=== PATIENT | male | born 1955 | race Caucasian/White ===

== ENCOUNTER 2022-01-07 12:41 | Emergency (ER) | payer MEDICARE, SELFPAY ==
[2022-01-07 12:43] VITALS: BP 159/81; PULSE 97; RESP 16; TEMP 36.9; O2SAT 96; BMI 31.4
--- NOTE | 2022-01-07 12:52 | ED.VIS.LOWEX ---
HPI History of Present Illness Chief Complaint: Lower Extremity Injury Detail of Chief Complaint: Swelling of right leg Informant: patient Narrative Narrative: Patient presents to the emergency department swelling of the right leg for about a week. Patient states that 3 weeks ago he was jogging and he felt a discomfort or injury to the right knee. 1 week ago he did a lot of walking and subsequently developed swelling to the leg. Today he was seen in urgent care and had x-rays of the knee and also had a venous Doppler of the right lower extremity that apparently showed DVT and was referred to the emergency department. Patient denies any chest pain or shortness of breath. Denies recent travel or surgery. Prior similar symptoms: No PFSH PFSH Medical History (Updated 01/07/22 @ 12:[address] Cecilio Romano, DO) Hernia History of stomach ulcers Home Medications apixaban 5 mg tablet (Eliquis) 5 mg PO BID #74 tabs 01/07/22 [Rx Last Taken Unknown] Allergy/AdvReac Type Severity Reaction Status Date / Time No Known Allergies Allergy Unverified 01/07/22 12:42 Social History (Updated 04/04/18 @ 11:40 by Denis PACHECO, TARA) Smoking Status: Never smoker alcohol intake: never ROS ROS ED Review of Systems ROS Unobtainable: other Constitutional Constitutional ED: Reports lethargy; Denies chills, fever(s), sweats or weight loss Eyes Eyes: Denies blurry vision, change in vision or diplopia ENT ENT ED: Denies rhinorrhea or sore throat Cardiovascular Cardiovascular: Denies chest pain, orthopnea or racing heartbeat Respiratory/Chest Respiratory/Chest: Reports dyspnea and dyspnea on exertion; Denies cough, orthopnea or sputum Gastrointestinal Gastrointestinal: Denies abdominal pain, diarrhea, nausea or vomiting Genitourinary Genitourinary ED: Denies dysuria, hematuria or urinary frequency Musculoskeletal Musculoskeletal: Reports other Details: Right leg swelling ; Denies arthralgias, back pain, myalgias or neck pain Integumentary Denies abscess, Abrasions or rash Neurologic Neurologic: Denies headache(s) or weakness Psychiatric Psychiatric: Denies anxiety, depression or suicidal thoughts Endocrine Endocrinology: Denies polydipsia, polyphagia or polyuria Hematologic/Lymphatic Hematologic/Lymphatic: Denies easy bleeding, easy bruising or lymphadenopathy Allergic/Immunologic Allergic/Immunologic ED: Denies mouth swelling, tongue swelling or urticaria EXAM Physical Exam Const Vital Signs: 01/07/22 12:43 Temperature 98.4 F Temperature Source Temporal Pulse Rate 97 Respiratory Rate 16 Blood Pressure 159/81 H Blood Pressure Mean 107 Pulse Ox 96 Oxygen Delivery Method Room Air Positive well nourished and well developed General Appearance ED: well developed and NAD HEENT Reports TM's clear and moist mucous membranes normocephalic and atraumatic; Negative for trauma or tenderness Tympanic Membrane ED: Yes TM's clear Eyes PERRL and EOMs intact bilaterally General Eye ED: Negative for pale conjunctiva or scleral icterus Neck no lymphadenopathy, supple and no JVD General: Negative for tenderness Chest Wall inspection of chest normal and palpation of chest normal Chest: Negative for tenderness Resp normal respiratory effort and clear to auscultation bilaterally Effort and Inspection: Negative for respiratory distress or pain with movement Auscultation: Negative for rhonchi, wheezes or diminished lung sounds Cardio regular rate, regular rhythm, S1 normal heart sound, S2 normal heart sound and no murmurs Peripheral Pulses: pulses 2+ throughout GI normal to inspection, nondistended, normoactive bowel sounds, soft to palpation, non-tender, non-distended and no masses Back/Spine no CVA tenderness and no thoracic nor lumbar tenderness Extremity Extremity Narrative: Patient does have edema of the right lower extremity from below the knee down to the foot. There are some faint increased erythema to the leg compared to the left side. Patient has normal dorsal pedal and posterior tibial pulses as well as popliteal and femoral pulses. No evidence for phlegmasia cerulea dolens. General Extremety ED: Negative for edema General Extremity: Negative for edema Neuro oriented x3, CN's II-XII intact bilaterally, no sensory deficits noted and gait normal Sensorium / Orientation: awake, alert, oriented to person, oriented to place and oriented to time Motor Exam: strength 5/5 throughout and strength abnormal Psych mental status grossly normal Skin no rashes or lesions noted and no wounds MDM MDM MDM Narrative Medical decision making narrative: Patient has a DVT based on the report that I received via fax in the proximal deep vein of the femoral vein. Patient also with acute proximal deep vein thrombosis in the profundofemoral vein as well as acute proximal deep vein thrombosis in the femoral vein throughout. Patient also with deep vein thrombosis in the popliteal vein. Patient will be started on Eliquis and given first dose in the emergency department. Patient advised to return if chest pain, shortness of breath, increased pain or swelling to the extremity, or condition should worsen anyway. Discharge Plan Triage Chief Complaint: Lower Extremity Injury Other Complaint: Edema ED Provider: Cecilio Romano Dx/Rx/DC Orders Clinical Impression: DVT (deep venous thrombosis) Instructions: ED Deep Vein Thrombosis (DVT) Prescriptions: New Eliquis 5 mg tablet 5 mg PO BID Qty: 74 0RF Rx Instructions: 10 mg twice a day for the first week. Then 5 mg twice a day. Primary Care Provider: Care Physician,No Primary Referrals: Liz Lynch MD [STAFF PHYSICIAN] - 3-5 Days NOT,DEFINED [NON-STAFF] - Disposition Disposition: Home, Self Care
[2022-01-07] MEDS: APIXABAN 5 MG TABLET 10 MG PO (13:13)
[2022-01-07 13:16] VITALS: BP 126/78; PULSE 78; RESP 14; TEMP 37.2; O2SAT 99
== END 2022-01-07 13:18 | disposition home or self-care (01) ==
PROVIDERS: Emergency Provider Emergency Medicine; Visit Provider Emergency Medicine
DX: I82.431 Acute embolism and thrombosis of right popliteal vein (principal); I82.411 Acute embolism and thrombosis of right femoral vein
CPT/HCPCS: 99283

== ENCOUNTER → 2023-07-08 | Outpatient (CLI) | payer MEDICARE, SELFPAY ==
--- OUTSIDE RECORDS SUMMARY | 2023-07-08 14:31 | XMS RPT_ITS | CCD ---
Author Name Unknown Address [address] [place] [address] Organization [facility] Care Team Providers Care [facility] Name Role Phone Unavailable Primary Care Provider Unavailabl e PROVIDER, UNKNOWN Referring Unavailable PROVIDER, UNKNOWN Referring Unavailable Unavailable Primary Care Provider UnavailDAVID Klein Referring Unavailable DAVID TRUJILLO Attending Unavailable Medications Completed/Discontinued Medications Medication Drug Class(es) Dates Sig (Normalized) Sig (Original) acetaminophen 110 mg / aspirin 162 mg / caffeine 32.4 mg / salicylamide 152 mg oral tablet (5 sources) Platelet Aggregation Inhibitor, Nonsteroidal Anti-inflammatory Drug, Central Nervous System Stimulant, Methylxanthine ASA-Acetaminophen- Salicyl-Caff 162 mg-110 mg -152 mg-32.4 mg tab Take 325 mg by mouth as needed. 0 Active Problems Problem Classification Problem Date Documented Da te Episodic/Chronic Other connective tissue disease (1 source) Swelling of lower limb; Translations: [Other specified soft tissue disorders] Episodic Other hereditary and degenerative nervous system conditions (1 source) Essential tremor; Translations: [Essential tremor] Chronic Other nervous system disorders (2 sources) Tremor; Translations: [Tremor, unspecified] 03-12-2023 Episodic Other nervous system disorders (1 source) Tremor, unspecified; Translations: [Tremor] Onset: 03-22-2023 Episodic Other non-traumatic joint disorders (1 source) Pain in right knee; Translations: [Pain in joint, lower leg] Episodic Phlebitis; thrombophlebitis and thromboembolism (1 source) Acute deep vein thrombosis of lower limb; Translations: [Acute embolism and thrombosis of other specified deep vein of right lower extremity] Episodic Results Test Name Value Interpretation Reference Range Facil ity Vital Signs Date Time Vital Sign Value Performing Clinician Faci lity 03-12-2023 14:21-0400 Body height 180.3 cm David Trujillo MD Work Phone: [facility] 03-12-2023 14:21-0400 Body weight 104.15 kg David Trujillo MD Work Phone: [facility] 03-12-2023 14:21-0400 Diastolic blood pressure 96 mm[Hg] David Trujillo MD Work Phone: [facility] 03-12-2023 14:21-0400 Heart rate 77 /min David Trujillo MD Work Phone: [facility] 03-12-2023 14:21-0400 SaO2% (BldA) [Mass fraction] 99 % David Trujillo MD Work Phone: [facility] 03-12-2023 14:21-0400 Systolic blood pressure 168 mm[Hg] David Trujillo MD Work Phone: [facility] 01-07-2022 09:31-0400 Body temperature 99.3 [degF] Deejay Pendlebury DEVELOPMENT EDITOR.CERTIFIED MEDICATION TECHNICIAN Work Phone: [facility] 01-07-2022 09:31-0400 Body weight 102.51 kg Deejay Pendlebury DEVELOPMENT EDITOR.CERTIFIED MEDICATION TECHNICIAN Work Phone: [facility] 01-07-2022 09:31-0400 Diastolic blood pressure 80 mm[Hg] Deejay Pendlebury DEVELOPMENT EDITOR.CERTIFIED MEDICATION TECHNICIAN Work Phone: [facility] 01-07-2022 09:31-0400 Heart rate 98 /min Deejay Pendlebury DEVELOPMENT EDITOR.CERTIFIED MEDICATION TECHNICIAN Work Phone: [facility] 01-07-2022 09:31-0400 Respiratory rate 18 /min Deejay Pendlebury DEVELOPMENT EDITOR.CERTIFIED MEDICATION TECHNICIAN Work Phone: [facility] 01-07-2022 09:31-0400 SaO2% (BldA) [Mass fraction] 96 % Deejay Pendlebury DEVELOPMENT EDITOR.CERTIFIED MEDICATION TECHNICIAN Work Phone: [facility] 01-07-2022 09:31-0400 Systolic blood pressure 132 mm[Hg] Deejay Pendlebury DEVELOPMENT EDITOR.CERTIFIED MEDICATION TECHNICIAN Work Phone: [facility] 12-22-2021 14:07-0400 Diastolic blood pressure 87 mm[Hg] David Trujillo MD Work Phone: [facility] 12-22-2021 14:07-0400 Heart rate 63 /min David Trujillo MD Work Phone: [facility] 12-22-2021 14:07-0400 Systolic blood pressure 155 mm[Hg] David Trujillo MD Work Phone: [facility] 12-22-2021 13:27-0400 Body height 180.3 cm David Trujillo MD Work Phone: [facility] 12-22-2021 13:27-0400 Body weight 104.28 kg David Trujillo MD Work Phone: [facility] 12-22-2021 13:27-0400 SaO2% (BldA) [Mass fraction] 98 % David Trujillo MD Work Phone: [facility] Encounters Encounter Date Encounter Type Care Provider Facility Start: 03-26-2023 Telephone encounter David anand MD Work Phone: [facility] Procedures Date Procedure Procedure Detail Performing Clinician Start: 03-22-2023 Rp loclzj abdi spect w/ct 1 area 1 day imaging David Trujillo MD Work Phone: Start: 12-22-2021 Adult depression screening assessment David Trujillo MD Work Phone: Plan of Treatment Date Care Activity Detail Author Start: 02-26-2023 Influenza [facility] Start: 12-22-2022 Adult depression screening assessment DEPRESSION SCREENING [facility] Start: 06-28-2022 Advance Directive Discussion Advance Directive Discussion [facility] Start: 06-28-2022 Depression Assessment Depression Assessment [facility] Start: 02-26-2022 Influenza vaccination [facility] Start: 06-28-2021 ADVANCE DIRECTIVE DISCUSSION ADVANCE DIRECTIVE DISCUSSION [facility] Start: 10-28-2019 Pneumococcal Vaccine: 65+ (1 - PCV) Pneumococcal Vaccine: 65+ (1 - PCV) [facility] Start: 10-28-2019 PNEUMOCOCCAL: 65+ (1 - PCV) PNEUMOCOCCAL: 65+ (1 - PCV) [facility] Start: 2009 PROSTATE CANCER SCREENING DISCUSSION PROSTATE CANCER SCREENING DISCUSSION [facility] Start: 2004 SHINGRIX VACCINE (1 of 2) SHINGRIX VACCINE (1 of 2) [facility] Start: 10-28-1999 COLOGUARD (FIT-DNA) COLOGUARD (FIT-DNA) [facility] Start: 10-28-1999 Colonoscopy COLONOSCOPY [facility] Start: 10-28-1999 COLORECTAL CANCER SCREENING COLORECTAL CANCER SCREENING [facility] Start: 10-28-[address] COLONOGRAPHY [facility] Start: 10-28-1999 DIABETES SCREEN DIABETES SCREEN [facility] Start: 10-28-1999 Diabetes Screening Diabetes Screening [facility] Start: 10-28-1999 FECAL OCCULT BLOOD FECAL OCCULT BLOOD [facility] Start: 10-28-1999 SIGMOIDOSCOPY SIGMOIDOSCOPY [facility] Start: 1989 Lipid 1996 panel - Serum or Plasma Lipid Screening [facility] Start: 1989 LIPID SCREEN LIPID SCREEN [facility] Start: 1973 Urine microalbumin profile [facility] Start: 1972 HEPATITIS C SCREENING HEPATITIS C SCREENING [facility] Start: 10-28-1959 COVID-19 VACCINE (#1) COVID-19 VACCINE (#1) [facility] Start: 04-29-1955 COVID-19 VACCINE (#1) COVID-19 VACCINE (#1) [facility] Start: 1954 ABDOMINAL AORTIC ANEURYSM SCREENING ABDOMINAL AORTIC ANEURYSM SCREENING [facility] End: 04-10-2024 NM BRAIN TREMOR SPECT/CT NM BRAIN TREMOR SPECT/CT Radiology Routine Tremor 1 Occurrences starting 03/12/2023 until 04/10/2024 [facility] Work Phone: Payers Date Payer Category Payer Medicare AETNA MEDICARE A ETNA MEDICARE O [id number] 2020-Present [phone] [address] [place] [address] [facility] [id number] 2020 Medicare AETNA MEDICARE A ETNA MEDICARE O [id number] 2020-Present [phone] [address] [place] [address] [facility] [id number] 2020 Medicare [id number] Social History Date Type Detail Facility Start: 01-17-2021 End: 03-12-2023 Tobacco smoking status NHIS Ex-smoker [facility] Start: 01-17-2021 End: 03-12-2023 Tobacco use and exposure Smokeless tobacco non-user [facility] Start: 12-22-2021 End: 03-12-2023 Alcohol intake Ex-drinker (finding) [facility] Start: 1955 Sex Assigned At Not on file [facility] Start: 12-12-2021 End: 01-07-2022 Exposure to SARS-CoV-2 (event) Not sure [facility] History of tobacco use Current smoker [facility] Start: 03-12-2023 History of Social function [facility] Start: 03-12-2023 Tobacco use panel [facility] Adult Depression Scr eening Assessment 0 [facility] Clinical Notes 12-22-2021 to 03-30-2023 Telephone Encounter - Reena Sorensen RN - 03/30/2023 12:55 PM EDTTelephone Encounter - David Trujillo MD - 03/30/2023 8:38 AM EDTTelephone Encounter - Sandie Curran - 03/26/2023 1:15 PM EDT Note Date & Type Note Facility 03-30-2023 Miscellaneous Notes Call to patient, message from provider given Patient is unsure at this time if he would like to try sinemet. Will call office once he has decided. Number provided. Please call patient. daTscan result is grade 1 loss which can be normal or very early Parkinson's. Because of this result it is reasonable to try Parkinson's medication and see if the tremor improves. If he is agreeable would start Sinemet. Start low dose and ramp up per directions on prescription. Most common side effect is nausea so take with food to help minimize that. Take doses around meal times, 3 times a day. If he is agreeable I'll send order Patient requesting TEODORO scan results from Wednesday documented in this encounter [facility] 03-22-2023 Note HNO ID: [id number] Author: Darlin Oliveros CNMT Service: Radiology Author Type: Technologist Type: Progress Notes Filed: 03/22/2023 12:44 PM Note Text: RADIOLOGY SERVICE PROGRESS NOTE SERVICE DATE: 03/22/2023 SERVICE TIME: 12:42 PM PATIENT IDENTITY VERIFICATION COMPLETED USING TWO (2) STANDARD IDENTIFIERS: Name and Date of confirmed by patient verbally and Name and Date of confirmed by identification band FALL SCREENING: Has the patient had 2 falls in the last year or 1 fall with injury or currently using an Ambulatory Assistive Device (Walker, Cane, Wheelchair, Crutches, etc.)? No PATIENT GENDER DATA: .male ALLERGIES: Reviewed and unchanged MEDICATIONS REVIEWED: Not applicable PATIENT RELEVANT IMPLANT DATA REVIEWED: Not Applicable CREATININE: No results found for: CREAT , EGFROTH , EGFRAA P.O.C.T. RESULTS: N/A March 22, [address] PERFORMED: No IV SITE: Ambulatory: A peripheral IV was started in the Left antecubital site with a Angio cath: 22 gauge. POST EXAM PIV STATUS: Discontinued PROCEDURE TYPE: NM INJECT: NM BRAIN TREMOR SPECT. 5 mCi I 123 DatScan. 4 drops SSKI administered orally, 15 min prior to injection. ADMINISTRATION TIME: 11:20 PATIENT DISCHARGED TO: Ambulatory patient, left MI department area. A Diagnostic radioactive procedure has taken place, with no further precautions necessary other than routine body substance precautions. More information regarding radiation safety can be found using this link: [email or web address]%20Nuclear%20M edicine%[email or web address] SIGNATURE: Darlin JULIANN Oliveros PATIENT NAME: Pineda Peterson DATE: March 22, 2023 TIME: 12:42 PM PAGER/CONTACT #: [facility] 03-22-2023 History of Presen t illness Narrative RADIOLOGY SERVICE PROGRESS NOTE SERVICE DATE: 03/22/2023 SERVICE TIME: 12:42 PM PATIENT IDENTITY VERIFICATION COMPLETED USING TWO (2) STANDARD IDENTIFIERS: Name and Date of confirmed by patient verbally and Name and Date of confirmed by identification band FALL SCREENING: Has the patient had 2 falls in the last year or 1 fall with injury or currently using an Ambulatory Assistive Device (Walker, Cane, Wheelchair, Crutches, etc.)? No PATIENT GENDER DATA: .male ALLERGIES: Reviewed and unchanged MEDICATIONS REVIEWED: Not applicable PATIENT RELEVANT IMPLANT DATA REVIEWED: Not Applicable CREATININE: No results found for: CREAT , EGFROTH , EGFRAA P.O.C.T. RESULTS: N/A March 22, [address] PERFORMED: No IV SITE: Ambulatory: A peripheral IV was started in the Left antecubital site with a Angio cath: 22 gauge. POST EXAM PIV STATUS: Discontinued PROCEDURE TYPE: NM INJECT: NM BRAIN TREMOR SPECT. 5 mCi I 123 DatScan. 4 drops SSKI administered orally, 15 min prior to injection. ADMINISTRATION TIME: 11:20 PATIENT DISCHARGED TO: Ambulatory patient, left [place] department area. A Diagnostic radioactive procedure has taken place, with no further precautions necessary other than routine body substance precautions. More information regarding radiation safety can be found using this link: [email or web address]-%20Diagnostic% 20Nuclear%20Medicine%20Procedur es.pdf SIGNATURE: JULIANN Delgado PATIENT NAME: Pineda Peterson DATE: March 22, 2023 TIME: 12:42 PM PAGER/CONTACT #: documented in this encounter [facility] 03-12-2023 Note HNO ID: [id number] Author: David Trujillo MD Service: ? Author Type: Physician Type: Progress Notes Filed: 03/12/2023 4:53 PM Note Text: [facility] - FOLLOW UP EVALUATION I had the pleasure of seeing Mr. Peterson for follow-up today. He is a 67 year old right-handed male with a history of tremors since his 30's . He is seen alone. Subjective Previous Plan-12/22/2021 Visit: Can taper off propranolol. Use the same instructions we used to start it but backwards. Can reduce the dose every 5 days rather than the 7 on the bottle. - Interval History: Right hand tremor is more bothersome. No trouble with dexterity. Worse if thinking about something. At rest. Can make an action, put some pressure on it and it briefly will stop. Always had slight tremor. Worse 2-3 years ago. Now cannot move the left hand without the right one moving. Nothing makes it better or worse. Still eats with the right hand. Bad at rest and with posture. Read about HIFU. Would be happy with tremor reduction. Balance is fine. Movement Disorders Medications Schedule - as of the start of the visit: Medications none Other Movement Disorder Prior Therapies Propranolol Questionnaires: In addition, the following areas that may be affected by abnormal involuntary movements were evaluated: Daily activities Difficulties with eatin (none) Difficulties in dressin (none) Difficulties with hygiene activities: 0 (none) Difficulties with handwriting: Yes (slight) Difficulties with doing hobbies and other activities: 0 (none) Difficulties turning in bed: 0 (none) Difficulties getting out of bed, car or chair: 0 (none) Tremors/Gait/Balance Shaking or tremors: Yes (moderate) Walking and balance problems: 0 (none) Number of falls in the Last Month: Gait freezin (none) Autonomic/Pain Lightheadeness on standin (none) Urinary problems: 0 (none) Constipation problems: 0 (none) Pain and other sensations: 0 (none) Speech/Swallowing Speech problems: 0 (none) no Droolin (none) Chewing and swallowing problems: 0 (none) Sleep/Fatigue Sleep problems: 0 (none) Daytime sleepiness: 0 (none) Fatigue: 0 (none) Mood/Behavior Depression: PHQ-9 Score: 0 usually representing no significant (0-4) depression. Anxiety: Finally, the following table shows the patient's overall global physical and mental health using the PROMIS scale: PROMIS-10 Flowsheet Row Office Visit from 03/12/2023 in Neurology Office Visit from 12/22/2021 in Neurology Global Physical Health T Score -- 54.1 Global Mental Health T Score 56 53.3 0-10 Standard Pain Scale 4 4 *PROMIS-10 scoring scale: mean = 50, over 50 is above average, under 50 is below average In addition, the following non-motor symptoms and palliative concerns were evaluated: Sleep/Fatigue: REM sleep behavior disorder: no Restless Legs Syndrome: Leg swelling: Impaired sense of smell: Yes bad for years Cognition: Cognitive impairment: no MoCA Cognitive assessment: Hallucinations and delusions: no Apathy: Impulse control disorder: Palliative Concerns: Caregiver burden: Spiritual concerns: Advanced directives on file: Palliative services: Therapy and Exercise: Last PT Date: Last OT Date: Last ST Date: Exercises Regularly: ALLERGIES No Known Allergies Current Outpatient Medications Medication Sig MULTI-VITAMIN ORAL Take by mouth. propranolol (INDERAL) 10 mg tablet Take 1 tablet by mouth once daily for 7 days, THEN 1 tablet twice daily for 7 days, THEN 1.5 tablets twice daily for 7 days, THEN 2 tablets twice daily. (Patient not taking: Reported on 01/07/2022) krill/om-3/dha/epa/phospho/ast (OMEGA-3 KRILL OIL ORAL) Take 500 mg by mouth once daily. (Patient not taking: Reported on 01/07/2022) ZVF-Iwgujyacuietg-Asozbml-Caff 162 mg-110 mg -152 mg-32.4 mg tab Take 325 mg by mouth as needed. (Patient not taking: Reported on 01/07/2022) No current facility-administered medications for this visit. Objective Vital Signs: BP 168/96 (BP Site: Left Arm, BP Position: Sitting, BP Cuff Size: Large Adult) Pulse 77 Ht 180.3 cm (5' 11 ) Wt 104.1 kg (229 lb 9.6 oz) SpO2 99% BMI 32.02 kg/m? Orthostatic Vitals: None for this encounter Weight: 104.1 kg (229 lb 9.6 oz) Height: 180.3 cm (5' 11 ) No LMP for male patient. Body mass index is 32.02 kg/m?. General Physical Examination: General: Awake, alert, interactive, no acute distress, good nutritional status, normal development, well-kept General Neurological Examination: Neurological Exam Mental Status Awake and alert. Language is fluent with no aphasia. Motor The following abnormal movements were seen: Trace rigidity at right upper extremity. Right hand resting tremor stops with action such as hand personal fitness trainer. Re-emergent right hand tremor with posture. No micrographia. Sentence is tremulous and barely legible. Spirals and lines (more content not included)... [facility] 03-12-2023 History of Presen t illness Narrative [facility] - FOLLOW UP EVALUATION I had the pleasure of seeing Mr. Peterson for follow-up today. He is a 67 year old right-handed male with a history of tremors since his 30's . He is seen alone. Subjective Previous Plan-12/22/2021 Visit: Can taper off propranolol. Use the same instructions we used to start it but backwards. Can reduce the dose every 5 days rather than the 7 on the bottle. - Interval History: Right hand tremor is more bothersome. No trouble with dexterity. Worse if thinking about something. At rest. Can make an action, put some pressure on it and it briefly will stop. Always had slight tremor. Worse 2-3 years ago. Now cannot move the left hand without the right one moving. Nothing makes it better or worse. Still eats with the right hand. Bad at rest and with posture. Read about HIFU. Would be happy with tremor reduction. Balance is fine. Movement Disorders Medications Schedule - as of the start of the visit: Medications none Other Movement Disorder Prior Therapies Propranolol Questionnaires: In addition, the following areas that may be affected by abnormal involuntary movements were evaluated: Daily activities Difficulties with eatin (none) Difficulties in dressin (none) Difficulties with hygiene activities: 0 (none) Difficulties with handwriting: Yes (slight) Difficulties with doing hobbies and other activities: 0 (none) Difficulties turning in bed: 0 (none) Difficulties getting out of bed, car or chair: 0 (none) Tremors/Gait/Balance Shaking or tremors: Yes (moderate) Walking and balance problems: 0 (none) Number of falls in the Last Month: Gait freezin (none) Autonomic/Pain Lightheadeness on standin (none) Urinary problems: 0 (none) Constipation problems: 0 (none) Pain and other sensations: 0 (none) Speech/Swallowing Speech problems: 0 (none) no Droolin (none) Chewing and swallowing problems: 0 (none) Sleep/Fatigue Sleep problems: 0 (none) Daytime sleepiness: 0 (none) Fatigue: 0 (none) Mood/Behavior Depression: PHQ-9 Score: 0 usually representing no significant (0-4) depression. Anxiety: Finally, the following table shows the patient's overall global physical and mental health using the PROMIS scale: PROMIS-10 Flowsheet Row Office Visit from 03/12/2023 in Neurology Office Visit from 12/22/2021 in Neurology Global Physical Health T Score -- 54.1 Global Mental Health T Score 56 53.3 0-10 Standard Pain Scale 4 4 *PROMIS-10 scoring scale: mean = 50, over 50 is above average, under 50 is below average In addition, the following non-motor symptoms and palliative concerns were evaluated: Sleep/Fatigue: REM sleep behavior disorder: no Restless Legs Syndrome: Leg swelling: Impaired sense of smell: Yes bad for years Cognition: Cognitive impairment: no MoCA Cognitive assessment: Hallucinations and delusions: no Apathy: Impulse control disorder: Palliative Concerns: Caregiver burden: Spiritual concerns: Advanced directives on file: Palliative services: Therapy and Exercise: Last PT Date: Last OT Date: Last ST Date: Exercises Regularly: ALLERGIES No Known Allergies Current Outpatient Medications Medication Sig MULTI-VITAMIN ORAL Take by mouth. propranolol (INDERAL) 10 mg tablet Take 1 tablet by mouth once daily for 7 days, THEN 1 tablet twice daily for 7 days, THEN 1.5 tablets twice daily for 7 days, THEN 2 tablets twice daily. (Patient not taking: Reported on 01/07/2022) krill/om-3/dha/epa/phospho/ast (OMEGA-3 KRILL OIL ORAL) Take 500 mg by mouth once daily. (Patient not taking: Reported on 01/07/2022) VAL-Chmjzgpfblxai-Eobjoji-Caff 162 mg-110 mg -152 mg-32.4 mg tab Take 325 mg by mouth as needed. (Patient not taking: Reported on 01/07/2022) No current facility-administered medications for this visit. Objective Vital Signs: BP 168/96 (BP Site: Left Arm, BP Position: Sitting, BP Cuff Size: Large Adult) Pulse 77 Ht 180.3 cm (5' 11 ) Wt 104.1 kg (229 lb 9.6 oz) SpO2 99% BMI 32.02 kg/m Orthostatic Vitals: None for this encounter Weight: 104.1 kg (229 lb 9.6 oz) Height: 180.3 cm (5' 11 ) No LMP for male patient. Body mass index is 32.02 kg/m . General Physical Examination: General: Awake, alert, interactive, no acute distress, good nutritional status, normal development, well-kept General Neurological Examination: Neurological Exam Mental Status Awake and alert. Language is fluent with no aphasia. Motor The following abnormal movements were seen: Trace rigidity at right upper extremity. Right hand resting tremor stops with action such as hand personal fitness trainer. Re-emergent right hand tremor with posture. No micrographia. Sentence is tremulous and barely legible. Spirals and lines are very tremulous with the right hand, very mildly tremulous with left.. Gait Casual gait: Normal stance. Normal stride length. Normal gait. Reduced right arm swing. Normal left arm swing. Able to rise from chair without using arms. Movement Disorders Scales Performed: MDS-UPDRS Motor subscale condition of exam Medication Off/On/Naiive Drug Naiive Time of UPDRS Time of Last Medication Last Medication Taken DBS Right DBS Left MDS-UPDRS Motor subscale scores Speech 0-Normal. No speech problems. Facial Expression 0-Normal. Normal facial expression. Rigidity Neck 0-Normal. No rigidity. Rigidity Right Upper Extremity 1-Slight. Rigidity only detected with activation maneuver. Rigidity Left Upper Extremity 0-Normal. No rigidity. Rigidity Right Lower Extremity 0-Normal. No rigidity. Rigidity Left Lower Extremity 0-Normal. No rigidity. Finger Taps Right 0-Normal. No problems. ` Finger Taps Left 0-Normal. No problems. Hand Movements Right 0-Normal. No problem. Hand Movements Left 0-Normal. No problem. Arm Movements Right 0-Normal. No problems. Arm Movements Left 0-Normal. No problems. Toe Taps Right 0-Normal. No problem. Toe Taps Left 0-Normal. No problem. Leg Agility Right 0-Normal. No problems. Leg Agility Left 0-Normal. No problems. Arise From Chair 0-Normal. No problems. Able to arise quickly without hesitation. Gait 1-Slight. Independent walking with minor gait impairment. (reduced right arm swing, re-emergent R hand tremor) Gait Freezing 0-Normal. No freezing. Posture Stability 0-Normal. No problems: recovers with one or two steps. (deferred) Posture 0-Normal. No problems. Body Bradykinesia 0-Normal. No problems. Postural Tremor Hand Right 3-Moderate. Tremor is at least 3 but less than 10 cm in amplitude. Postural Tremor Hand Left 0-Normal. No tremor. Kinetic Tremor Right 1-Slight. Tremor is present but less than 1cm in amplitude. Kinetic Tremor Left 1-Slight. Tremor is present but less than 1cm in amplitude. Rest Tremor Amplitude Right Upper Extremity 3-Moderate. 3 - 10 cm in maximal amplitude. Rest Tremor Amplitude Left Upper Extremity 0-Normal. No tremor. Rest Tremor Amplitude Right Lower Extremity 0-Normal. No tremor. Rest Tremor Amplitude Left Lower Extremity 0-Normal. No tremor. Rest Tremor Amplitude Lip/Jaw 0-Normal. No tremor. Rest Tremor Constancy 4-Severe. Tremor at rest is present > 75% of the entire examination period. MDS-UPDRS Motor subscale totals Left Total 1 Right Total 8 Midline Total 1 Tremor Total / 10 12 PIGD Total / 3 1 Overall Total 14 % Change Compared to Last Filed Total Assessment and Plan: Assessment Mr. Peterson is a right-handed 67 year old year old male with tremor. Noted right hand tremor initially only when writing in his 30's. Then a few years ago developed larger tremor in the right hand. Now with right hand moderate amplitude resting and postural tremors, minimal bilateral upper extremity action tremors. There is trace rigidity in the right upper extremity and reduced right arm swing. No obvious bradykinesia on the right but exam is limited by the tremor. Tremor is not irregular or task specific. No micrographia or RBD. He does admit to hyposmia. He didn't respond to propranolol. He is interested in treatment, possibly surgical options. Need to solidify the diagnosis. Suspect initially ET vs primary writing tremor that has developed into PD. Will obtain [facility]scan. The following are the current problems noted and addressed during this visit: Tremor (primary encounter diagnosis) Plan 03/12/2023 Visit: [facility] - Updated Movement Disorders Medication Schedule: Medications Level of service : 51883 (40-54 min). Time spent 46 min on the day of service, which included preparing to see the patient, [id number] patient care, completing clinical documentation, performing a medically appropriate examination, counseling and educating the patient/family/caregiver, and ordering medications, tests, or procedures. Thank you for allowing me to be part of the clinical care of this patient! I look forward to continued participation in the patient s care with you. Please do not hesitate to call with any questions. Sincerely, David Trujillo MD documented in this encounter [facility] 01-07-2022 History of Presen t illness Narrative Subjective HPI Nontoxic appearing male presents urgent care chief complaint right calf swelling and pain. Duration of symptoms 8 days. Patient states he was running 8 days ago when he felt some pain underneath his right knee. States noticed some swelling of his knee. States pain was improving some and then he had do a lot of walking. States after this he developed some swelling in his right calf. Presents today for evaluation. States pain has improved swelling has improved slightly however he is concerned about DVTs due to family history of DVTs. Has been using aspirin this has helped. Denies any numbness no tingling. Denies any chest pain shortness of breath pleuritic pain hemoptysis nausea vomiting abdominal pain or change in bowel or bladder habits. Denies history of DVT PEs personally. No recent long travel or surgery. Denies history of cancer. Past medical history prescription medication use allergies reviewed. .Patient presents with: Calf Pain: right calf swollen x 1 week, does run and walk PAST MEDICAL HISTORY Diagnosis Date Occasional tremors with hands when reaching, he can stop them if he sits on hands Onychomycosis Plantar fasciitis Right Foot Pneumonia due to COVID-19 virus PTTD (posterior tibial tendon dysfunction) PAST SURGICAL HISTORY Procedure Laterality Date HERNIA REPAIR HX umbilical and bilateral inguinal surgery repairs PAST SURGICAL HISTORY OF PAST SURGICAL HISTORY OF tonsilectomy ALLERGIES Patient has no known allergies. MEDICATIONS MULTI-VITAMIN ORAL Take by mouth. propranolol (INDERAL) 10 mg tablet Take 1 tablet by mouth once daily for 7 days, THEN 1 tablet twice daily for 7 days, THEN 1.5 tablets twice daily for 7 days, THEN 2 tablets twice daily. krill/om-3/dha/epa/phospho/ast (OMEGA-3 KRILL OIL ORAL) Take 500 mg by mouth once daily. PCU-Jyrlijrxjdgwb-Ckqfpms-Caff 162 mg-110 mg -152 mg-32.4 mg tab Take 325 mg by mouth as needed. FAMILY HISTORY Problem Relation Age of Onset Thyroid Mother Diabetes Half-brother Heart Half-brother Bypass surgical History Mental illness Maternal Grandmother Hypertension No Family History Hyperlipidemia No Family History Coronary Artery Disease No Family History Blood Disease No Family History Blood Clots No Family History DVT No Family History Stroke No Family History Factor 5 Leiden No Family History Systemic Lupus Erythematosus No Family History Multiple Sclerosis No Family History Schizophrenia No Family History Bipolar disorder No Family History Alzheimer's Disease No Family History Dementia No Family History Parkinson s Disease No Family History Aneurysm No Family History COPD No Family History Kidney Disease No Family History Social History Tobacco Use Smoking status: Former Smoker Smokeless tobacco: Never Used Substance Use Topics Alcohol use: Not Currently Drug use: Never BP 132/80 Pulse 98 Temp 37.4 C (99.3 F) Resp 18 Wt 102.5 kg (226 lb) SpO2 96% BMI 31.52 kg/m Review of Systems Constitutional: Negative for chills, fever and malaise/fatigue. HENT: Negative for congestion, ear discharge, ear pain, sinus pain and sore throat. Eyes: Negative for blurred vision, pain, discharge and redness. Respiratory: Negative for cough, hemoptysis, sputum production, shortness of breath, wheezing and stridor. Cardiovascular: Negative for chest pain. Gastrointestinal: Negative for abdominal pain, diarrhea, nausea and vomiting. Musculoskeletal: Positive for joint pain. Negative for myalgias. Skin: Negative for itching and rash. Neurological: Negative for dizziness and headaches. Objective Physical Exam Constitutional: General: He is not in acute distress. Appearance: He is not diaphoretic. HENT: Head: Normocephalic. Mouth/Throat: Mouth: Mucous membranes are moist. Pharynx: Oropharynx is clear. No oropharyngeal exudate or posterior oropharyngeal erythema. Eyes: Conjunctiva/sclera: Conjunctivae normal. Pupils: Pupils are equal, round, and reactive to light. Cardiovascular: Rate and Rhythm: Normal rate and regular rhythm. Heart sounds: Normal heart sounds. Pulmonary: Effort: Pulmonary effort is normal. No tachypnea, accessory muscle usage or respiratory distress. Breath sounds: Normal breath sounds. No stridor. No wheezing, rhonchi or rales. Abdominal: Palpations: Abdomen is soft. Tenderness: There is no abdominal tenderness. Musculoskeletal: Cervical back: Normal range of motion and neck supple. No rigidity or tenderness. Right upper leg: No swelling, edema, deformity, lacerations, tenderness or bony tenderness. Right knee: Swelling present. No effusion or erythema. Normal range of motion. Tenderness present. Right lower leg: Swelling present. No deformity, lacerations, tenderness or bony tenderness. Edema present. Right ankle: Swelling present. No ecchymosis. No tenderness. Normal range of motion. Comments: Moderate amount of swelling noted right calf. No erythema. No breaks in skin. Neurovascular intact. No erythema noted right knee. No evidence of bacterial infection. Lymphadenopathy: Cervical: No cervical adenopathy. Skin: General: Skin is warm and dry. Neurological: Mental Status: He is alert and oriented to person, place, and time. IMPRESSION: Findings are suggestive of mild degenerative changes in the right knee. ASSESSMENT/PLAN: 1. Leg swelling - ICD9: 729.81, ICD10: M79.89 (primary - US DVT LOWER RT - US LEG VEIN DVT UNL VAS LAB 2. Acute pain of right knee - ICD9: 719.46, ICD10: M25.561 - XR KNEE GENERAL 4V AP BOTH/PA BOTH/LAT/MERC RIGHT 3. Acute deep vein thrombosis (DVT) of other specified vein of right lower extremity (HCC) - ICD9: 453.40, ICD10: I82.491 RIGHT SIDE - DEEP VEINS Acute proximal deep vein thrombosis in the common femoral vein. Acute proximal deep vein thrombosis in the profunda femoral vein at proximal. Acute proximal deep vein thrombosis in the femoral vein throughout. Acute proximal deep vein thrombosis in the popliteal vein. On reviewing significant amount of DVT was noted. Patient is not established with PCP. I recommended patient be seen in ED for further evaluation care. Patient was contacted and treatment plan was discussed with patient. Patient verbalized understand agrees with plan of care. Will be seen at [facility]. ER passport sent. Deejay Hinson APRN.BREANN documented in this encounter [facility] 12-22-2021 Instructions David Trujillo MD - 12/22/2021 1:58 PM EDT It was a pleasure to see you today. We addressed the following diagnoses: Essential tremor (primary encounter diagnosis) My recommendations are as follows: 12/22/2021 Visit: Can taper off propranolol. Use the same instructions we used to start it but backwards. Can reduce the dose every 5 days rather than the 7 on the bottle. - Movement Disorders Medication Schedule: Return if symptoms worsen or fail to improve. If there are any concerns before your next visit, please call or you can send a message through [facility]. You can also now schedule and select appointments through [facility]. David Trujillo MD documented in this encounter [facility] 12-22-2021 History of Presen t illness Narrative [facility] - FOLLOW UP EVALUATION I had the pleasure of seeing Mr. Peterson for follow up today. He is a 66 year old right-handed male with a history of tremors since his 30's . He is seen alone. Subjective Previous Plan-08/13/2021 Visit: Start propranolol, titrate to 20 mg twice daily. Watch for lightheadedness, low BP. Call with update - Interval History: Good and bad days. Not sure how much propranolol is helping. No side effects. Most days can eat, drink with no problem. Main issue is writing. Some days can write with the right hand. Generally writes with the left hand and right hand shakes when he does it. In addition, the following areas that may be affected by abnormal involuntary movements were evaluated: Daily activities Difficulties with eatin (none) Difficulties in dressin (none) Difficulties with hygiene activities: 0 (none) Difficulties with handwritin (none) Difficulties with doing hobbies and other activities: 0 (none) Difficulties turning in bed: 0 (none) Difficulties getting out of bed, car or chair: 0 (none) Tremors/Gait/Balance Shaking or tremors: Yes (mild) Walking and balance problems: 0 (none) Number of falls in the Last Month: 0 Gait freezin (none) Autonomic/Pain Lightheadeness on standin (none) Urinary problems: Yes (slight) Speech/Swallowing Speech problems: No Droolin (none) Chewing and swallowing problems: 0 (none) Sleep/Fatigue Sleep problems: Yes (slight) Daytime sleepiness: Yes (slight) Fatigue: 0 (none) REM sleep behavior disorder: no Mood/Behavior Depression: PQH-9 = 0 usually representing no significant (0-4) depression. Anxiety: LEFTY-7 = 0 usually representing no significant (0-4) anxiety. Finally, the following table shows the patient's overall global physical and mental health using the PROMIS scale: PROMIS-10 Office Visit from 12/22/2021 in Neurology Global Physical Health T Score 54.1 Global Mental Health T Score 53.3 0-10 Standard Pain Scale 4 *PROMIS-10 scoring scale: mean = 50, over 50 is above average, under 50 is below average Movement Disorders Medications Schedule - as of the start of the visit: propranolol ALLERGIES No Known Allergies Current Outpatient Medications Medication Sig propranolol (INDERAL) 10 mg tablet Take 1 tablet by mouth once daily for 7 days, THEN 1 tablet twice daily for 7 days, THEN 1.5 tablets twice daily for 7 days, THEN 2 tablets twice daily. krill/om-3/dha/epa/phospho/ast (OMEGA-3 KRILL OIL ORAL) Take 500 mg by mouth once daily. MULTI-VITAMIN ORAL Take by mouth. NQR-Scwcfxjtenyct-Wqxtcyq-Caff 162 mg-110 mg -152 mg-32.4 mg tab Take 325 mg by mouth as needed. No current facility-administered medications for this visit. Objective Vital Signs: BP 155/87 (BP Site: Left Arm, BP Position: Sitting, BP Cuff Size: Regular Adult) Pulse 63 Ht 180.3 cm (5' 11 ) Wt 104.3 kg (229 lb 14.4 oz) SpO2 98% BMI 32.06 kg/m General Physical Examination: General: Awake, alert, interactive, no acute distress, good nutritional status, normal development, well-kept General Neurological Examination: Neurological Exam Mental Status Awake and alert. Speech is normal. Language is fluent with no aphasia. Fund of knowledge is appropriate for level of education. Motor Minimal bilateral upper extremity action and postural tremors. No resting tremor. Mild rigidity at upper extremities. No bradykinesia x4 extremities. Assessment and Plan: Assessment Mr. Haverty is a right-handed 66 year old male with tremor. Noting right hand tremor initially only when writing. Symptoms progressed over time and now right hand tremor is with action and at rest, left hand tremor with action is very mild. Right hand tremor at initial onset possibly focal hand dystonia since task specific. Is common for a dystonic tremor to worsen and involve more tasks. Also with left hand tremor with action and posture that is not task specific. No family history of tremors. Unclear if propranolol is helping and he would like to try stopping it. Tremors are manageable and doesn't want to try additional medication at this time. The following are the current problems noted and addressed during this visit: Essential tremor (primary encounter diagnosis) Plan 12/22/2021 Visit: Can taper off propranolol. Use the same instructions we used to start it but backwards. Can reduce the dose every 5 days rather than the 7 on the bottle. - Updated Movement Disorders Medication Schedule: Level of service : 63021 (20-29 min). Time spent 25 min on the day of service, which included preparing to see the patient, ufvo-mg-miln patient care, completing clinical documentation, performing a medically appropriate examination and counseling and educating the patient/family/caregiver. Thank you for allowing me to be part of the clinical care of this patient! I look forward to continued participation in the patient s care with you. Please do not hesitate to call with any questions. Sincerely, David Trujillo MD documented in this encounter [facility] Diagnosis Leg swelling- Primary Swelling of limb Acute pain of right knee Acute deep vein thrombosis (DVT) of other specified vein of right lower extremity (HCC) [facility] Diagnosis Tremor- Primary Abnormal involuntary movements [facility] Diagnosis Tremor Abnormal involuntary movements [facility]narrative)* Outpatient Procedure (Urgent) - Closed Specialty Diagnoses / Procedures Referred By Contac t Referred [facility] Diagnoses Leg swelling Procedures US LEG VEIN DVT UNL VAS LAB DUP-SCAN XTR VEINS UNILATERAL/LIMITED STUDY Deejay Hinson APRN.CERTIFIED MEDICATION TECHNICIAN [address] [place] [address] [facility] [place] [address] [place] [address] Referral ID Status Reason Start Date Expiration Date V isits Requested Visits Authorized [id number] Closed Auto-Generate d Referral 01/07/2022 01/07/2023 1 1 * Diagnostic Procedure Only (Urgent) - Closed Specialty Diagnoses / Procedures Referred By Contac t Referred To Contact XR IMAGING Diagnoses Acute pain of right knee Procedures XR KNEE GENERAL 4V AP BOTH/PA BOTH/LAT/MERC RIGHT RADIOLOGIC EXAM KNEE COMPLETE 4/MORE VIEWS Deejay Hinson APRN.CNP [address] [place] [address] Xr Imaging Referral ID Status Reason Start Date Expiration Date V isits Requested Visits Authorized [id number] Closed Auto-Generate d Referral 01/07/2022 02/06/2023 1 1 [facility] for referral (narrative)* Diagnostic Procedure Only (Routine) - Pending Review Specialty Diagnoses / Procedures Referred By Contac t Referred To Contact MOLECULAR & FUNCTIONAL IMAGING Diagnoses Tremor Procedures NM BRAIN TREMOR SPECT/CT RP LOCLZJ ABDI SPECT W/CT 1 AREA 1 DAY IMAGING David Trujillo MD [facility] [address] [address] Molecular & Functional Imaging [address] [place] [address] Referral ID Status Reason Start Date Expiration Date Visits Requested Visits Authorized [id number] Pending Review Auto-Generat ed Referral 03/12/2023 04/10/2024 1 1 [facility] for referral (narrative)* Diagnostic Procedure Only (Routine) - Closed Specialty Diagnoses / Procedures Referred By Contac t Referred To Contact MOLECULAR & FUNCTIONAL IMAGING Diagnoses Tremor Procedures NM BRAIN TREMOR SPECT/CT RP LOCLZJ ABDI SPECT W/CT 1 AREA 1 DAY IMAGING David Trujillo MD [address] [address] Molecular & Functional Imaging [address] [place], [place] [id number] Referral ID Status Reason Start Date Expiration Date V isits Requested Visits Authorized [id number] Closed Auto-Generate d Referral 03/14/2023 06/27/2023 1 1 [facility] for visit Narrative* Diagnostic Procedure Only (Routine) - Closed Specialty Diagnoses / Procedures Referred By Lacho pierre Referred To Contact MOLECULAR & FUNCTIONAL IMAGING Diagnoses Tremor Procedures NM BRAIN TREMOR SPECT/CT RP LOCLZJ ABDI SPECT W/CT 1 AREA 1 DAY IMAGING David Trujillo MD [address] [address] Molecular & Functional Imaging [address] [place], [place] [id number] Referral ID Status Reason Start Date Expiration Date V isits Requested Visits Authorized [id number] Closed Auto-Generate d Referral 03/14/2023 06/27/2023 1 1 [facility] Summary Purpose Family History No Family History Records FoundNo Family History Records Found Advance Directives No Advanced Directives Records FoundNo Advanced Directives Records Found Additional Source Comments Source Comments (unrecognize d section and content) In the event this informatio n is protected by the Federal Confidentiality of Alcohol and Drug Abuse Patient Records regulations: The Federal rules restrict any use of the information to criminally investigate or prosecute any alcohol or drug abuse patient.[facility] the event this information is protected by the Federal Confidentiality of Alcohol and Drug Abuse Patient Records regulations: The Federal rules restrict any use of the information to criminally investigate or prosecute any alcohol or drug abuse patient.[facility] the event this information is protected by the Federal Confidentiality of Alcohol and Drug Abuse Patient Records regulations: The Federal rules restrict any use of the information to criminally investigate or prosecute any alcohol or drug abuse patient.[facility] the event this information is protected by the Federal Confidentiality of Alcohol and Drug Abuse Patient Records regulations: The Federal rules restrict any use of the information to criminally investigate or prosecute any alcohol or drug abuse patient.[facility] the event this information is protected by the Federal Confidentiality of Alcohol and Drug Abuse Patient Records regulations: The Federal rules restrict any use of the information to criminally investigate or prosecute any alcohol or drug abuse patient.[facility] Reason for Visit (unrecogniz ed section and content) Specialty Diagnoses / Procedures Referred By Contac t Referred To Contact Neurology / NEUROLOGICAL CAODAISM Diagnoses Tremor, unspecified 4 mo followup Procedures OFFICE/OUTPATIENT ESTABLISHED HIGH MDM 40-54 MIN OFFICE/OUTPATIENT ESTABLISHED MOD MDM 30-39 MIN OFFICE/OUTPATIENT ESTABLISHED LOW MDM 20-29 MIN OFFICE/OUTPATIENT ESTABLISHED SF MDM 10-19 MIN EST NI PATIENT David Trujillo MD [address] [address] David Trujillo MD [address] [address] Referral ID Status Reason Start Date Expiration Date Visits Re quested Visits Authorized [id number] Closed 12/05/2021 06/27/2022 1 1 Reason Comments Calf Pain right calf swollen x 1 week, does run and walk Reason Comments Follow Up Specialty Diagnoses / Procedures Referred By Contac t Referred To Contact Neurology / NEUROLOGICAL CAODAISM Diagnoses discuss focused ultrasound and botox Procedures EST NI PATIENT David Trujillo MD [address] [place] [address] David Trujillo MD [address] [address] Referral ID Status Reason Start Date Expiration Date Visits Re quested Visits Authorized [id number] Closed 03/12/2023 06/27/2023 1 1 Reason Comments Results TEODORO scan (unrecognized sect ion and content) No Status Records FoundNo Status Records Found INFORMATION SOURCE (unrecogn ized section and content) DATE CREATED AUTHOR AUTHOR'S ORGANIZ ATION 04/13/2023 [facility] FOR RECORDS PERTAINING TO PATIENTS WHO ARE OR HAVE BEEN ENROLLED IN A CHEMICAL DEPENDENCY/SUBSTANCEABUSE PROGRAM, SOME INFORMATION MAY BE OMITTED. This clinical summary was aggregated from multiple sources. Caution should be exercised in using it in the provision of clinical care. This summary normalizes information from multiple sources, and as a consequence, information in this document may materially change the coding, format and clinical context of patient data. In addition, data may be omitted in some cases. CLINICAL DECISIONS SHOULD BE BASED ON THE PRIMARY CLINICAL RECORDS. [facility] [employer] [facility]. provides no warranty or guarantee of the accuracy or completeness of information in this document.
[2023-07-08 15:32] LABS: Absolute Lymphocyte Count 1.77 X10^3/uL (0.83-4.51); Absolute Neutrophil Count 3.8 X10^3/uL (2.0-7.7); Basophil# 0.03 X10^3/uL; Basophil% 0.5 % (0-1); Eosinophil# 0.07 X10^3/uL; Eosinophils% 1.1 % (0-5); Hematocrit 49.7 % (40-54); Hemoglobin 16.2 g/dL (13.0-16.5); Lymphocyte # 1.77 X10^3/ul (0.83-4.51); Lymphocyte % 28.1 % (19-41); Mean Corp Hgb Conc 32.6 g/dL (32-36); Mean Corpuscular Hgb 30.6 pg (27.0-32.0); Mean Corpuscular Volume 93.8 fL (80-94); Mean Platelet Vol. 10.1 fl (6.2-12.0); Monocyte# 0.58 X10^3/uL; Monocyte% 9.2 % (0-10); NRBC Flagged by Analyzer 0 % (0-5); Neutrophil # 3.84 X10^3/uL (2.7-7.7); Neutrophil % 60.9 % (47-70); Platelet Count 228 K/mm3 (150-450); RBC Distribution Width CV 13.2 % (11.6-14.6); RBC Distribution Width SD 45.1 fl (35.1-43.9); White Blood Count 6.3 K/mm3 (4.4-11.0)
[2023-07-08 16:41] LABS: Vitamin B12 406 pg/mL (211-911)
[2023-07-08 17:19] LABS: AST(SGOT) 19 U/L (15-37); Alanine Aminotransfer ALT/SGPT 22 U/L (16-61); Albumin, Serum 3.6 g/dL (3.2-5.0); Alkaline Phosphatase 117 U/L (45-117); Anion Gap 5 (5-15); BUN 12 mg/dL (7-18); BUN/Creat Ratio 11.8 RATIO (10-20); Calcium,Total 9.1 mg/dL (8.5-10.1); Chloride 106 mmol/L (98-107); Creatinine, Serum 1.02 mg/dL (0.70-1.30); EST Glomerular Filtration Rate 77 mL/min (>60); Est Glom Filt Rate - Afr Amer 93 mL/min (>60); Globulin 3.7 g/dL (2.2-4.2); Glucose 84 mg/dL (74-106); Protein, Total 7.3 g/dL (6.4-8.2); Sodium Level 138 mmol/L (136-145); Thyroid Stim Hormone (TSH) 2.14 uIU/mL (0.358-3.74)
== END | disposition home or self-care (01) ==
LOC: MFPLAB 14:05
PROVIDERS: PCP Family Medicine; Visit Provider Family Medicine
DX: R25.1 Tremor, unspecified (principal)
CPT/HCPCS: 36415; 80053; 82607; 82746; 84443; 85025

== ENCOUNTER → 2023-07-16 | Outpatient (CLI) | payer MEDICARE, SELFPAY ==
--- NOTE | 2023-07-16 13:54 | CT_ITS ---
STUDY: CT BRAIN WITHOUT CONTRAST REASON FOR EXAM: Male, 67 years old. tremors RADIATION DOSAGE (If Supplied By Facility): CTDIvol = ( 47.06 ) mGy, DLP = ( 855.03 ) mGycm TECHNIQUE: Transaxial CT imaging of the brain was performed without administration of intravenous contrast material. Individualized dose optimization techniques were used for this CT. COMPARISON: No relevant priors. FINDINGS: Normal soft tissue structures. Normal calvarium. Normal size ventricles and extra-axial spaces for the patient''s age. Normal white matter tracts of the cerebral hemispheres. Normal basal ganglia and thalami. Normal brainstem. Normal cerebellum. There is no intracranial hemorrhage. There are no findings of an acute ischemic infarction. Normal visualized paranasal sinuses. CT/Brain/Head without Contrast IMPRESSION: Age consistent senescent changes, no acute findings Electronically Signed: Haroon Sánchez MD at 14:35 EST ,
== END | disposition home or self-care (01) ==
PROVIDERS: PCP Family Medicine; Referring Provider Family Medicine; Visit Provider Family Medicine
DX: R25.1 Tremor, unspecified (principal)
CPT/HCPCS: 70450